=== PATIENT | female | born 1975 ===

== ENCOUNTER 2018-01-22 09:29 | Emergency (ER) | payer SELFPAY ==
[2017-07-25 10:14] VITALS: BMI 26.2
[2018-01-22 11:23] LABS: SQUAMOUS EPITHIAL 8 /hpf (0-5); URINE BACTERIA RARE (<OCC); URINE BILIRUBIN NEGATIVE (NEGATIVE); URINE BLOOD 1+ (NEGATIVE); URINE CLARITY Hazy (Clear); URINE COLOR Yellow (YELLOW); URINE GLUCOSE (UA) NORMAL (Normal); URINE LEUKOCYTE ESTERASE 3+ Leu/uL (Negative); URINE PROTEIN NEGATIVE (NEGATIVE); URINE UROBILINOGEN NORMAL mg/dL (0.2-1.0)
--- NOTE | 2018-01-22 14:24 | OBHP ---
Datetime: 01/22/2018 13:50 IP Adm Impression: , intrauterine IP Adm Impression Other: AMA; Type IIDM, chronic HTN; H/O CVA; dyslipidemia IP Admit Plan: Discharge home Admit Comment, IP Provider: Patient seen at approximately 1045 hours. Patient is Bulgarian-speaking, accompanied by 22 y.o. daughter who served as manager sound. 42 y.o. , LMP unsure (08/2017); WAQAS 05/05/18, EGA 25w 2d by breonna "2 weeks ago at approx 22 weeks", c/o decreased FM since 1500 hours 01/21/18. During interview, patient then corrected herself, s aying the movement was more intermittent than decreased. Denies VB, LOF, Ctx. Also, reports constipa tion: has hard BM daily. care: initiated at [facility]; then tra nsferred to [facility] - had 1 appointment 1 week ago. Now transferred to High Risk clinic at [facility] due high risk nature of - AMA, Type II DM, chronic HTN; S/P CVA; dyslipid emia. P OB: x 3, all delivered at [facility]: 1994, female, "8 months", 4lb 5oz; no other complications. 1995, male, 6lb. 1999 male, 7lb 5oz. P PRODUCTION CHECKER: 15 x 28 x 7. Denies h/o STIs or abnormal Pap test PMH: All diagnosed 12/2016 - Type II DM, HTN, dyslipidemia; S/P CVA - when occurred, unknown PSH: denies NKDA Meds: 1) PNV - QD; 2) metformin 1,000 mg p.o. BID. 3) Baby ASA 1 tab p.o. QD Soc Hx: denies tobacco, illicit drug or EtOH use. Currently unemployed. Lives with her children. F OB involved Soc Hx: Mother alive 60 y.o. pre-DM. Father alive - mostly unknown. No known fam h/o cancer P.E.: as above. WD in NAD. Awake, alert, oriented to time, person and place. Pleasant and coopera tive Assessment: 42 y.o. P2103, 25w 2d - Type II DM - unsure re: control. F.S. in L_D 100 mg = fasting; last ate 01/21/18 late afternoon/evening. Chronic HTN - BP well controlled on no meds at this time (st opped by OB provider, per patient). H/O CVA - on ASA: stable. Dyslipidemia - not on meds. Patient r eassured about fetus. As marketing underwriter entered room, patient stated she felt the baby moving. Patient counse led re: importance of timely evaluation in the future, if this situation, or any other, arises. FHR a ppropriate for GA. FM auscultated throughout duration of encounter. Patient counseled on water inta ke (half body weight in ounces of water), to increase p.o. intake of green leafy vegetables. Otherwi se, clinically stable. Plan: 1) U/A Addendum: U/A noted for pH 7.0, S.G. 1.010; leuk esterase 2+ Assessment: early UTI Plan: 1) Rx: MacroBID 100 mg, 1 tab p.o. BID x 7 days 2) Rx. Diflucan 150 mg 1 tab p.o. x 1, take after antibiotics 3) Keep high risk appointment, Sunday01/25/18 4) Keep all scheduled apopintments 5) Take all medications as prescribed Pelvic Type - PN: Adequate Extremities - PN: Normal Abdomen - PN: Normal Back - PN: Normal Breast - PN: Not Done Lungs - PN: Normal Heart - PN: Normal Thyroid - PN: Not Done Neurologic - PN: Normal HEENT - PN: Normal General - PN: Normal FHR - Baseline A Provider: [id number] Contraction Comments Provider: irritability Comments, ACOG Physical Exam: Abdomen: Obese. Soft. Non distended. Gravid Non tender n all quadrants All other systems reviewed - see HPI Gestation - Est Wks by US: 25w 2d EGA AdmitDate IP: 24.5 Vital Signs Provider: Reviewed IP Chief Complaint: Decreased movement Dilatation, Provider: FT Effacement, Provider: 30 Station, Provider: N/A Genitourinary Exam: Normal DTRs - PN: Not Done
[2018-01-22 16:03] VITALS: BP 128/83; PULSE 91; RESP 18; TEMP 97; O2SAT 100
== END 2018-01-22 11:50 | disposition home or self-care (01) ==
LOC: C.EROB 09:29
DX: O23.42 Unspecified infection of urinary tract in pregnancy, second trimester (principal); O24.912 Unspecified diabetes mellitus in pregnancy, second trimester; Z3A.25 25 weeks gestation of pregnancy

== ENCOUNTER → 2019-02-18 | Outpatient (CLI) | payer SELFPAY | LOC: C.USIC 13:22 ==